=== PATIENT | male | born 1935 | race Caucasian/White ===

== ENCOUNTER 2016-11-25 06:13 | Emergency (ER) | payer MEDICARE, OTHER ==
[~2016-11-25] VITALS: Ht 167.6 cm; Wt 41.7 kg
[~2016-11-25 06:13] MED LIST: ALBUTEROL2.5 MG/0.5 INH; ASPIRIN EC325 MG PO; ATORVASTATIN CA40 MG PO; NORVASC5 MG PO; OCUVITE TABLET1 EAC1 PO; PREDNISONE20 MG PO; SOTALOL80 MG PO; VENTOLIN HFA18 GM IH; WARFARIN SODIUM5 MG PO; ZITHROMAX250 MG PO
[2016-11-25] MEDS ORDERED: POTASSIUM CHLO10 ME2 PO (06:33)
[2016-11-25] MEDS ORDERED: LASIX20 MG PO (06:33)
[2016-11-25] MEDS ORDERED: PREDNISONE20 MG PO (09:16)
--- NOTE | 2016-11-25 21:04 | EKG ---
[facility] [address] [facility] [place], [place] [address] Signed Poor data quality Sinus rhythm with occasional premature ventricular complexes and premature atrial complexes Possible Left atrial enlargement Anterolateral infarct , age undetermined ST \T\ T wave abnormality, consider inferior ischemia Abnormal ECG No previous ECGs available Confirmed by FIDEL TRUJILLO MD ([id number]) on 11/25/2016 9:03:57 PM Electronically Signed By: FIDEL TRUJILLO MD 11/25/16 2104 PATIENT NAME: JOSE LOVELACE Electrocardiogram DATE OF : 37 PHYSICIAN: FIDEL TRUJILLO MD REPORT #: [id number] REPORT IS CONFIDENTIAL AND NOT TO BE RELEASED WITHOUT AUTHORIZATION
== END 2016-11-25 09:34 | disposition home or self-care (01) ==
LOC: ED 06:13
DX: J44.1 Chronic obstructive pulmonary disease with (acute) exacerbation (principal); I48.91 Unspecified atrial fibrillation; I10 Essential (primary) hypertension; E78.00 Pure hypercholesterolemia, unspecified; Z87.891 Personal history of nicotine dependence; Z79.899 Other long term (current) drug therapy; Z79.01 Long term (current) use of anticoagulants; Z99.81 Dependence on supplemental oxygen
CPT/HCPCS: 71010; 80053; 83735; 84484; 85025; 94640; 96374; 96375; 99284; J2405; J2930

== ENCOUNTER 2016-12-11 10:06 | Emergency (ER) | payer MEDICARE, OTHER ==
[~2016-12-11] VITALS: Ht 167.6 cm; Wt 41.7 kg
[~2016-12-11 10:06] MED LIST changes: +LASIX20 MG PO; +POTASSIUM CHLO10 ME2 PO
[2016-12-11] MEDS ORDERED: NYSTATIN100000 UN1 PO (15:02)
[2016-12-11] MEDS ORDERED: MORPHINE S10 MG/5 ML PO (15:02)
--- NOTE | 2016-12-11 20:31 | EKG ---
[facility] [address] [facility] [place] [address] Signed Atrial fibrillation with rapid ventricular response with premature ventricular or aberrantly conducted complexes Marked ST abnormality, possible inferior subendocardial injury Abnormal ECG When compared with ECG of 25-NOV-2016 06:27, Atrial fibrillation has replaced Sinus rhythm Vent. rate has increased BY 50 BPM Criteria for Anterior infarct are no longer present Criteria for Anterolateral infarct are no longer present ST now depressed in Anterolateral leads Nonspecific T wave abnormality now evident in Lateral leads Confirmed by FIDEL TRUJILLO MD ([id number]) on 12/11/2016 8:30:54 PM Electronically Signed By: FIDEL TRUJILLO MD 12/11/162030 PATIENT NAME: ALBANIAJOSE Electrocardiogram DATE OF : 37 PHYSICIAN: FIDEL TRUJILLO MD REPORT #: [id number] REPORT IS CONFIDENTIAL AND NOT TO BE RELEASED WITHOUT AUTHORIZATION
== END 2016-12-11 15:31 | disposition home or self-care (01) ==
LOC: ED 10:06
DX: J44.9 Chronic obstructive pulmonary disease, unspecified (principal); I48.91 Unspecified atrial fibrillation; I10 Essential (primary) hypertension; E78.00 Pure hypercholesterolemia, unspecified; Z87.891 Personal history of nicotine dependence; Z79.52 Long term (current) use of systemic steroids; Z79.899 Other long term (current) drug therapy; Z79.01 Long term (current) use of anticoagulants
CPT/HCPCS: 36415; 71010; 80053; 81001; 83605; 85025; 93005; 93010; 94640; 96361; 96374; 96375; 99284; J2270; J7040

== ENCOUNTER 2016-12-29 06:27 | Emergency (ER) | payer MEDICARE, OTHER ==
[~2016-12-29] VITALS: Ht 167.6 cm; Wt 40.4 kg
--- NOTE | ~2016-12-29 | EKG ---
[facility] [address] [facility] [place], [place] [address] Draft EKG completed, results pending confirmation PATIENT NAME: JOSE LOVELACE Electrocardiogram DATE OF : 37 PHYSICIAN: PRELIMINARY REPORT #: [id number] REPORT IS CONFIDENTIAL AND NOT TO BE RELEASED WITHOUT AUTHORIZATION
[~2016-12-29 06:27] MED LIST changes: +MORPHINE S10 MG/5 ML PO; +NYSTATIN100000 UN1 PO
[2016-12-29] MEDS ORDERED: PREDNISONE5 MG PO (06:39)
[2016-12-29] MEDS ORDERED: PREDNISONE20 MG PO (09:48)
[2016-12-29] MEDS ORDERED: ZITHROMAX250 MG PO (09:48)
--- NOTE | 2016-12-29 14:23 | EKG ---
[facility] [address] [facility] [place] [address] Signed Sinus rhythm with premature supraventricular complexes Septal infarct (cited on or before 25-NOV-2016) Abnormal ECG When compared with ECG of 29-DEC-2016 06:47, (Unconfirmed) Previous ECG has undetermined rhythm, needs review ST no longer elevated in Anterior leads T wave inversion no longer evident in Inferior leads QT has shortened Confirmed by FIDEL TRUJILLO MD ([id number]) on 12/29/2016 2:23:04 PM Electronically Signed By: FIDEL TRUJILLO MD 12/29/16 1423 PATIENT NAME: JOSE LOVELACE Electrocardiogram DATE OF : 37 PHYSICIAN: FIDEL TRUJILLO MD REPORT #: [id number] REPORT IS CONFIDENTIAL AND NOT TO BE RELEASED WITHOUT AUTHORIZATION
== END 2016-12-29 10:27 | disposition home or self-care (01) ==
LOC: ED 06:27
DX: R06.02 Shortness of breath (principal); J44.9 Chronic obstructive pulmonary disease, unspecified; I10 Essential (primary) hypertension; I48.91 Unspecified atrial fibrillation; E78.00 Pure hypercholesterolemia, unspecified; Z99.81 Dependence on supplemental oxygen; Z87.891 Personal history of nicotine dependence; Z79.899 Other long term (current) drug therapy; Z79.01 Long term (current) use of anticoagulants; Z79.52 Long term (current) use of systemic steroids
CPT/HCPCS: 71020; 80053; 83880; 85025; 85610; 85730; 93005; 93010; 96374; 99283; J2930

== ENCOUNTER 2017-01-11 07:28 | Emergency (ER) | payer MEDICARE, OTHER ==
[~2017-01-11] VITALS: Ht 167.6 cm; Wt 37.0 kg
[~2017-01-11 07:28] MED LIST changes: +PREDNISONE5 MG PO
--- NOTE | 2017-01-11 12:06 | NUR ---
PT AT 1200. LISTENED FOR AN APICAL PULSE FOR 1 MINUTE. SECOND NURSE ALSO VERIFIED THERE IS NO APICAL PULSE. MD IN TO ASSESS. CALLED TIME OF AT 1200. FAMILY IN ROOM. WILL CALL [facility] AGAIN FOR HOSPICE TRAY.
--- NOTE | 2017-01-11 14:53 | NUR ---
I WAS NOTIFIED BY M\S RN THAT PT WAS , AND THAT NOW FAMILY WOULD LIKE MY PRESENCE. LP AJ, AND FRIENDS WERE IN THE RM. AJ WAS HOLDING PT'S HAND, DEALING VERY APPROPRIATELY WITH HER LOSS. THEY HAD NOTIFIED PT'S DAUGHTER WHO CAME IMMEDIATELY. DECISION WAS MADE TO USE [employer], AND THAT PT WOULD BE CREMATED. I BROUGHT THEM A SMALL BLUE PASSAGE QUILT-PT'S FAV- [place] [employer]. THIS SEEMED TO PLEASE THEM. I LEFT THEM ALONE, I SENSED THEY DESIRED THIS TIME. DAUGHTER ARRIVED, I NOTIFIED [employer]. FAMILY CHOSE TO LEAVE. 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 GOD BLESS THEM
== END 2017-01-11 12:00 | disposition short-term general hospital (02) ==
LOC: ED 07:28 → MS 07:29 → ED 07:29 → MS 12:00 → ED 12:00
DX: J44.9 Chronic obstructive pulmonary disease, unspecified (principal); Z51.5 Encounter for palliative care; I48.91 Unspecified atrial fibrillation; I10 Essential (primary) hypertension; J96.11 Chronic respiratory failure with hypoxia; E78.00 Pure hypercholesterolemia, unspecified; R64 Cachexia; Z79.2 Long term (current) use of antibiotics; Z99.81 Dependence on supplemental oxygen; Z87.891 Personal history of nicotine dependence; Z79.01 Long term (current) use of anticoagulants; Z79.52 Long term (current) use of systemic steroids; Z79.899 Other long term (current) drug therapy
CPT/HCPCS: 71010; 80053; 85025; 94660; 96374; 96375; 96376; 99285; J1170; J2060